=== PATIENT | male | born 1995 | race Caucasian/White ===

== ENCOUNTER 2016-05-31 21:38 | Emergency (ER) | payer SELFPAY ==
--- NOTE | 2016-06-21 21:26 | ER ---
ADMIT: 05/31/2016 RM/LOC: ER [facility] MR#: [id number] [address] [facility] [address] [address] [place] [address] Emergency Room Report SEX: M AGE: 20 : 1995 DATE: 05/31/2016 A 20-year-old was plugging his TV in when it fell off the stand and hit him in the head. No loss of consciousness. See T-sheet for remainder of history and physical. The patient is diagnosed with minor closed head injury. Encouraged to follow up as needed. Jorge L Butler MD/ karley JOB #: [id number] CC: Álvaro Mckeon MD, Attending Physician Primitivo Mccabe MD, Family Physician
== END 2016-05-31 23:50 | disposition home or self-care (01) ==
LOC: ER 21:38
DX: S09.90XA Unspecified injury of head, initial encounter (principal); F17.210 Nicotine dependence, cigarettes, uncomplicated; W20.8XXA Other cause of strike by thrown, projected or falling object, initial encounter; Y92.009 Unspecified place in unspecified non-institutional (private) residence as the place of occurrence of the external cause

== ENCOUNTER 2016-06-29 20:59 | Emergency (ER) | payer SELFPAY ==
--- NOTE | 2016-06-30 03:02 | ER ---
ADMIT: 06/29/2016 RM/LOC: ER [facility] MR#: [id number] [address] [facility] [address] [place] [id number] Emergency Room Report SEX: M AGE: 20 : 1995 DATE: 06/29/2016 The patient is a 20-year-old male, recent epididymitis, exposure to chlamydia. Completed azithromycin course, states first intercourse since treatment, developed acute right testicle pain. Denies any discharge, fevers, chills, or dysuria. Exam remarkable for nontoxic, afebrile male with normal scrotal contents. Strong cremasteric reflex bilaterally. Normal testicular lie. Tender, nonenlarged right testicle and epididymis. No hernia is noted. Urine PCR for chlamydia, GC pending. Rocephin 250 mg IM, doxycycline 200 mg load, 100 mg b.i.d. x2 weeks, hydrocodone 5/325 #20 plus 6. Ibuprofen or Aleve as needed. Scrotal elevation. Ice. Follow up Dr. Mccabe as needed. Álvaro Mckeon MD/ karley JOB #: [id number] CC: Álvaro Mckeon MD, Attending Physician Primitivo Mccabe MD
== END 2016-06-29 22:25 | disposition home or self-care (01) ==
LOC: ER 20:59
DX: N45.2 Orchitis (principal); N45.1 Epididymitis